=== PATIENT | female | born 1975 | race Caucasian/White ===

== ENCOUNTER 2018-01-30 19:02 | Emergency (ER) | payer SELFPAY ==
[~2018-01-30] VITALS: Ht 157.5 cm; Wt 91.0 kg
[2018-01-30] MEDS ORDERED: ALBU8HFA IH (19:22)
[2018-01-30 19:23] VITALS: BP 157/99
== END 2018-01-30 20:37 | disposition home or self-care (01) ==
LOC: EMS 19:03
DX: F43.20 Adjustment disorder, unspecified (principal); M79.622 Pain in left upper arm; I10 Essential (primary) hypertension; J45.909 Unspecified asthma, uncomplicated; F17.210 Nicotine dependence, cigarettes, uncomplicated
CPT/HCPCS: 99285; 99406